=== PATIENT | male | born 1945 | race Caucasian/White ===

== ENCOUNTER 2018-01-21 11:50 | Inpatient (IN) ==
[2018-01-21] MEDS ORDERED: 0.9 % Sodium Chloride 1,000 ML ONE (13:58)
[2018-01-21] MEDS ORDERED: Naloxone 0.4 MG/ML INJ IVP PRN (14:55)
[2018-01-21 14:56] LABS: Basophils % 0.4 %; Eosinophils # 0.1 K/mcL (0.0-0.6); Eosinophils % 1.3 %; Hematocrit 26.7 % (37.5-50.1); Hemoglobin 8.6 g/dL (12.9-16.9); Immature Granulocytes % 0.7 % (0-4); Lymphocytes # 1.6 K/mcL (0.6-4.6); Lymphocytes % 29.9 %; Mean Corpuscular HGB Conc 32.2 g/dL (31.6-35.5); Mean Corpuscular Hemoglobin 32.3 pg (28.0-33.3); Mean Corpuscular Volume 100.4 fL (83.0-100.0); Monocytes # 0.3 K/mcL (0.0-1.3); Monocytes % 4.7 %; Neutrophils # 3.4 K/mcL (1.6-8.9); Platelet Count 147 K/mcL (140-400); Red Blood Count 2.66 M/mcL (4.19-5.50)
[2018-01-21] MEDS ORDERED: Ipratropium/Albuterol Neb 3 ML IH PRN (15:06)
[2018-01-21 15:21] LABS: Alanine Aminotransferase 6 Units/L (7-52); Albumin 3.4 g/dL (3.5-5.7); Albumin/Globulin Ratio 1.5 (1.1-2.2); Alkaline Phosphatase 129 Units/L (34-104); Aspartate Amino Transferase 10 Units/L (13-39); BUN/Creatinine Ratio 18 (6-26); Bilirubin,Total 0.6 mg/dL (0.3-1.0); Blood Urea Nitrogen 13 mg/dL (8-23); Carbon Dioxide 26 mEq/L (23-29); Chloride 107 mEq/L (98-107); Globulin 2.2 g/dL (2.4-3.5); Glucose 94 mg/dL (70-105); Osmolality,Calculated 290 (280-300); Sodium 140 mEq/L (136-145); Total Protein 5.6 g/dL (6.4-8.9); eGFR For African Americans > 60 (> 60); eGFR For Non-African Americans > 60 (> 60)
[2018-01-21] MEDS ORDERED: 0.9 % Sodium Chloride 500 ML IVC ONE (16:40)
--- NOTE | 2018-01-21 17:31 | Internal Med History&Physical ---
<MattPatrick Nicole - Last Filed: 01/21/18 18:22> Date of Encounter: 01/21/18 Time of Encounter: 14:30 Internal Medicine - H&P: HPI Chief complaint: Blood in urine Admitted From: Hospital to Hospital Transfer Plans for Post Hospital Care: Home History of present illness: Mr. Gardner is a 72 year old male w/PMH of HTN, atrial flutter on Xarelto, torticollis, peripheral vascular disease status postgraft, and bladder cancer presents from [facility] ED w/CC of blood in urine for the past month that has become progressively worse over the past week. Pt. reports weakness and SOB over the past week and constipation over the past two days. No alleviating or aggravating factors. Pt. denies recent illness, fever, chills, nausea, vomiting , headache, changes in vision, abdominal pain, diarrhea, dizziness, lightheadedness, pre-syncope, or syncope. Past Med Surg Social Fam HX - Past Medical History Source: patient, old records reviewed Medical history: atrial fibrillation, COPD, GERD, hyperlipidemia, hypertension Additional medical history: torticollis, anxiety, muscle spasm Psychiatric history: anxiety - Past Surgical History Additional surgical history: vascular surgery times two. hernia repair. stents in bladder. torticollis surgery, brain surgery, stent placement and replacement, bladder surgery, sprunt off left heel, eyelid surgery - Social History Smoking Status: Light tobacco smoker Smokeless Tobacco Status: No Alcohol use: none Drug use: none Current living situation: Home Activity Level: Independent ambulation Recent Out of Country Travel Within the Last 8 Weeks: No Exposure or Possible Exposure to Illness During Travel: No - Family History Father Adopted: [place]: Josue Gardner Race: Family Member Ethnicity: Non- Living Status: Age at : 79 Cause of : Alzheimer's disease Hx Family Cancer: Yes (Lip) Hx Family Neuromuscular Disorders: Yes (Alzheimer's disease) Mother Race: Family Member Ethnicity: Non- Living Status: Age at : 75 Cause of : Stroke Hx Family Cardiac Disorders: Yes (Stroke, HTN) Brother Race: Family Member Ethnicity: Non- Living Status: Still Living Hx Family Neurologic Disorders: Yes (Alzheimer's disease) Sister History Unknown: Yes Race: Family Member Ethnicity: Non- Living Status: Age at : 64 Cause of : Unknown Daughter Race: Family Member Ethnicity: Non- Living Status: Still Living Hx Family GI Disorders: Yes (GERD) Internal Medicine - H&P: Meds Atenolol [Tenormin] 50 mg PO DAILY 09/30/16 [History] Baclofen [Lioresal] 10 mg PO TID 09/30/16 [History] Dantrolene Sodium 50 mg PO TID 09/30/16 [History] Esomeprazole Magnesium [Nexium] 40 mg PO DAILY PRN 09/30/16 [History] Sennosides [Senokot] 8.6 mg PO DAILY PRN 09/30/16 [History] Tizanidine HCl 8 mg PO Q8H 09/30/16 [History] Tramadol HCl [Ultram] 100 mg PO Q8H PRN 09/30/16 [History] diazePAM [Valium] 10 mg PO TID PRN 09/30/16 [History] Atorvastatin Calcium [Lipitor] 20 mg PO HS 09/15/17 [History] Gabapentin [Neurontin] 400 mg PO TID 09/15/17 [History] Terazosin HCl 10 mg PO BID 09/15/17 [History] Albuterol Sulfate [Ventolin Hfa] 2 puff IH Q6H PRN 01/21/18 [History] Budesonide/Formoterol 160/4.5 [Symbicort 160/4.5] 2 puff IH BID 01/21/18 [ History] 3 Allergy/AdvReac Type Severity Reaction Status Date / Time morphine AdvReac See Verified 01/21/18 19:50 Comments Oxycodone AdvReac See Verified 01/21/18 19:50 Comments All Systems PM: A 10-system review of systems was performed and is negative for pertinent findings except as documented above in the HPI. - Constitutional Constitutional: as per HPI, fatigue, weakness, no chills, no fever(s), no night sweats - EENT Eyes: no change in vision, no discharge, no pain, no photophobia Ears: no ear discharge, no ear pain, no tinnitus Nose, mouth and throat: no dysphagia, no nasal discharge, no neck pain, no sore throat - Breasts Breasts: as per HPI - Cardiovascular Cardiovascular ROS IM: as per HPI, dyspnea, dyspnea on exertion, irregular heart rhythm, no chest pain, no diaphoresis, no lightheadedness, no palpitations , no syncope - Respiratory Respiratory: as per HPI, dyspnea, dyspnea on exertion, no cough, no wheezing, no excessive phlegm production - Gastrointestinal Gastrointestinal: as per HPI, constipation, no abdominal pain, no diarrhea, no hematemesis, no hematochezia, no melena, no nausea, no vomiting - Genitourinary Genitourinary ROS male: as per HPI - Musculoskeletal Musculoskeletal ROS IM: no numbness, no tingling - Integumentary Integumentary IM: no rash, no unusual bruising - Neurological Neurological ROS: as per HPI, weakness, no confusion, no convulsions, no focal weakness, no numbness, no tingling, no tremor(s) - Psychiatric Psychiatric: as per HPI - Endocrine Endocrine IM: as per HPI - Hematologic/Lymphatic Hematologic/Lymphatic: no easy bruising - Allergic/Immunologic Allergic/Immunologic: as per HPI - Constitutional Vitals: Temp Pulse Resp BP Pulse Ox 97.9 F 70 15 98/66 92 01/21/18 16:02 01/21/18 16:02 01/21/18 16:02 01/21/18 14:49 01/21/18 16:02 General appearance: Present: cooperative, A&O X 3, pleasant, no acute distress, underweight, answers questions appropriately - Head Head exam: Present: atraumatic, normocephalic - Eye Eye exam: Present: PERRL, conjuntiva pink, sclera anicteric Pupils: Present: PERRL - ENT ENT exam: Present: normal exam - Neck Neck exam general surgery: Present: supple, trachea midline. Absent: lymphadenopathy - Respiratory Respiratory exam: Present: CTAB. Absent: accessory muscle use, rales, rhonchi, wheezes - Cardiovascular Cardiovascular exam: Present: irregular rhythm - GI/Abdominal GI/Abdominal exam: Present: normal bowel sounds, soft, no peritoneal signs. Absent: distended, tenderness - Rectal Rectal exam: Present: deferred - Additional comments: exam deferred. - Extremities Exam Extremities exam: Present: warm, radial pulses palpable and symmetrical. Absent : calf tenderness, cyanotic, pedal edema - Back Exam Back exam: Present: normal inspection - Neurological Exam Neurological exam: Present: CN II-XII intact, oriented X3, no focal deficits. Absent: pronater drift, facial droop, speech deficit - Psychiatric Psychiatric exam: Present: normal affect, normal mood - Skin Skin exam: Present: dry, intact Internal Med - H&P Results - Labs CBC & Chem 7: 01/21/18 14:35 01/21/18 14:35 Labs: Short CBC 01/21/18 Range/Units 14:35 WBC 5.4 (4.3-11.1) K/mcL Hgb 8.6 L (12.9-16.9) g/dL Hct 26.7 L (37.5-50.1) % Plt Count 147 (140-400) K/mcL Neutrophils # 3.4 (1.6-8.9) K/mcL BMP 01/21/18 14:35 Sodium 140 Potassium 4.0 Chloride 107 Carbon Dioxide 26 BUN 13 Creatinine 0.72 Glucose 94 Calcium 8.0 L Liver Function 01/21/18 Range/Units 14:35 Total Bilirubin 0.6 (0.3-1.0) mg/dL AST 10 L (13-39) Units/L ALT 6 L (7-52) Units/L Alkaline Phosphatase 129 H (34-104) Units/L Albumin 3.4 L (3.5-5.7) g/dL - EKG Data Prior EKG available for review: yes EKG comments: 01/21/18 17:40 EKG dated 01/21/18 at [place] shows atrial flutter with predominant 4:1 AV block , nonspecific intraventricular conduction delay, nonspecific T abnormalities in inferior leads, and ST elevation. Consider inferior injury. EKG dated 01/21/18 at [place] shows atrial flutter/tachycardia with slow ventricular response, borderline left axis deviation, and moderate intraventricular conduction delay. - Assessment and plan (1) Gross hematuria Current Visit: Yes Status: Acute Assessment and plan: Acute on chronic hematuria. Pt. reports hematuria for past month which has worsened over past few days. Gross shira blood present in urinary catheter. Hx of urothelial carcinoma. Urology consult during transfer discussion w/Chaitanya and Dr. Mcwilliams. Hgb low at [facility] so pt. transfused w/2 units PRBCs. Hgb now 8.6 post-transfusion. Pt. also hypotensive at [facility] w/SBP in 50s. BP improved to 70s post-transfusion. Timed H/H Q6HR. Communication order w/timed BPs and notification to admitter/provider of results to assess need for IV fluids. Manual BPs to be done until pts. SBP >120 for four hours or more. 500 mL 0.9 NS bolus ordered to be followed by 100 mL/HR. Pts. nurse on 3A notified Dr. Mcwilliams of gross shira blood in urinary catheter whose recommendation was to keep pt. hemodynamically stable, do not replace current Kohli w/3-way Kohli, and no CBI. Dr. Mcwilliams to see pt. this afternoon. NPO status w/mouth swabs. Continuous cardiac telemetry. Supplemental O2 w/titration and SpO2 monitoring. Falls/safety precautions, up with assist, bed rest w/bedside commode w/assist only d/t weakness. Measure I&O. APTT and PT/INR in f/u labs. Pt. is DNRCCA DNI. PT. to be monitored closely for continued hypotension and need for PRBC tranfusions. Pt. discussed w/ Dr. Arellano who agrees w/plan of care. Pt. is high risk for further mobidity d/t current gross hematuria, current atrial flutter on Xarelto, hx of urothelial carcinoma, and risk factors. Inpatient. (2) Weakness Current Visit: Yes Status: Acute Assessment and plan: Acute weakness r/t gross shira blood loss from hematuria. Falls/safety precautions, up with assist, bed rest w/bedside commode w/assist only. (3) HTN (hypertension) Current Visit: Yes Status: Chronic Assessment and plan: Hx of chronic HTN. Monitor pt. and VS. Will continue pts. BP meds once appropriate d/t current severe hypotension. Qualifiers: Hypertension type: essential hypertension Qualified Code(s): I10 - Essential (primary) hypertension (4) Atrial flutter Current Visit: Yes Status: Chronic Assessment and plan: Hx of atrial flutter. Pt. on Xarelto. Monitor hematuria. NPO status for now so PO meds held. Continuous cardiac telemetry. Qualifiers: Atrial flutter type: unspecified Qualified Code(s): I48.92 - Unspecified atrial flutter (5) Torticollis Current Visit: Yes Status: Chronic Assessment and plan: Hx of chronic torticollis. Pt. states numbness extends from right side of head around front to left chest/shoulder. (6) Urothelial cancer Current Visit: Yes Status: Chronic Assessment and plan: Hx of urothelial carcinoma. Hx of cystoscopy by Dr. Mcwilliams and transurethral resection of bladder tumor in past. Urology consult ordered and discussed w/Dr. Mcwilliams during transfer from [facility]. (7) DVT prophylaxis Current Visit: Yes Status: Acute Assessment and plan: Pt. takes Xarelto for current atrial flutter. Monitor pt. for worsening hematuria/bleeding. (8) Severe hypotension Current Visit: Yes Status: Acute Assessment and plan: Acute severe hypotension r/t current blood loss from gross hematuria. Monitor pt. and VS. Pts. SBP was in 50s at [facility]. Received 2 units PRBCs. BP Q15MIN ordered w/communication order for manual BPs until pts. SBP >120 for four hours. 500 mL 0.9 NS bolus ordered. last BP 102/70. Continue to monitor. - Time Spent With Patient Total time spent is greater than 50% in coordination of care (as documented) at patient's floor/unit and/or counseling patient: Greater than 35 minutes <Adrian Arellano - Last Filed: 01/22/18 07:42> Date of Encounter: 01/22/18 Internal Medicine - H&P: HPI History of present illness: Mr. Gardner is a 72 year old male All Systems PM: A 10-system review of systems was performed and is negative for pertinent findings except as documented above in the HPI. - Constitutional Vitals: Temp Pulse Resp BP Pulse Ox 97.8 F 61 18 112/68 94 01/22/18 07:20 01/22/18 07:20 01/22/18 07:20 01/22/18 07:20 01/22/18 07:20 Internal Med - H&P Results - Labs CBC & Chem 7: 01/22/18 03:15 01/22/18 03:15 Labs: Short CBC 01/21/18 01/21/18 01/22/18 Range/Units 14:35 21:00 03:15 WBC 5.4 4.5 (4.3-11.1) K/mcL Hgb 8.6 L 8.2 L 7.9 L (12.9-16.9) g/dL Hct 26.7 L 25.2 L 24.8 L (37.5-50.1) % Plt Count 147 155 (140-400) K/mcL Neutrophils # 3.4 2.6 (1.6-8.9) K/mcL BMP 01/21/18 01/22/18 14:35 03:15 Sodium 140 141 Potassium 4.0 3.9 Chloride 107 109 H Carbon Dioxide 26 27 BUN 13 17 Creatinine 0.72 0.88 Glucose 94 103 Calcium 8.0 L 8.1 L Liver Function 01/21/18 01/22/18 Range/Units 14:35 03:15 Total Bilirubin 0.6 0.3 (0.3-1.0) mg/dL AST 10 L 11 L (13-39) Units/L ALT 6 L 5 L (7-52) Units/L Alkaline Phosphatase 129 H 123 H (34-104) Units/L Albumin 3.4 L 3.3 L (3.5-5.7) g/dL - Attending Attestation Discussed with SISI and agree with assessment as above. Patient is a 72-year-old male with past medical history significant for bladder cancer who presents with gross hematuria and hypotension from [facility]. On exam patient is a healthy-appearing and hypotensive. Patient has received 2 units of packed red blood cells and hemoglobin has improved. Continue IV fluid resuscitation Urology has been consulted and will see patient this evening. - Assessment and plan (1) Urothelial cancer Current Visit: Yes Status: Chronic (2) Gross hematuria Current Visit: Yes Status: Acute (3) HTN (hypertension) Current Visit: Yes Status: Chronic Qualifiers: Hypertension type: essential hypertension Qualified Code(s): I10 - Essential (primary) hypertension (4) Atrial flutter Current Visit: Yes Status: Chronic Qualifiers: Atrial flutter type: unspecified Qualified Code(s): I48.92 - Unspecified atrial flutter (5) Torticollis Current Visit: Yes Status: Chronic (6) DVT prophylaxis Current Visit: Yes Status: Acute (7) Weakness Current Visit: Yes Status: Acute (8) Severe hypotension Current Visit: Yes Status: Acute - Time Spent With Patient Total time spent is greater than 50% in coordination of care (as documented) at patient's floor/unit and/or counseling patient:
[2018-01-21] MEDS ORDERED: Ketorolac 30 MG/ML VIAL IVP ONE (17:48)
--- NOTE | 2018-01-21 19:16 | Urology - Consult Note ---
Date of Encounter: 01/21/18 Time of Encounter: 19:14 - Assessment and Plan (1) Gross hematuria Current Visit: Yes Status: Acute Assessment and plan: Gross hematuria is likely secondary to bladder cancer combined with anticoagulation. I placed a 3-way hematuria catheter was able to irrigate clot and started CBI. Hopefully the urine will clear with CBI. Hold all anticoagulation if possible. If urine does not clear we will perform CT pelvis to rule out clot in the bladder. Urology CN:ABRRERA Consult date: 01/21/18 Reason for consult Urology: Gross Hematuria History of present illness: Patient known to the urology service. TURBT in the last few months revealed muscle invasive bladder cancer. Currently under the care at the [facility] with adjuvant chemotherapy planned followed by radical cystectomy. He reports he has had dark gross hematuria with some clots for at least 2 weeks. He is on Xarelto which was held a few days ago. He did not undergo a repeat TURBT at [facility]. Significant symptomatic anemia at admission Past Med Surg Social Fam HX - Past Medical History Medical history: atrial fibrillation, COPD, GERD, hyperlipidemia, hypertension Additional medical history: torticollis, anxiety, muscle spasm Psychiatric history: anxiety - Past Surgical History Additional surgical history: vascular surgery times two. hernia repair. stents in bladder. torticollis surgery, brain surgery, stent placement and replacement, bladder surgery, sprunt off left heel, eyelid surgery - Social History Smoking Status: Light tobacco smoker Smokeless Tobacco Status: No Alcohol use: none Drug use: none - Family History Father Adopted: [place]: Josue Gardner Race: Family Member Ethnicity: Non- Living Status: Age at : 79 Cause of : Alzheimer's disease Hx Family Cardiac Disorders: No Hx Family Respiratory Disorders: No Hx Family Cancer: Yes (Lip) Hx Family GI Disorders: No Hx Family Genitourinary Disorders: No Hx Family Endocrine Disorder: No Hx Family Musculoskeletal Disorders: No Hx Family Neuromuscular Disorders: Yes (Alzheimer's disease) Hx Family Neurologic Disorders: No Hx Family HEENT Disorders: No Hx Family Autoimmune Disorders: No Hx Family Reproductive Disorders: No Hx Family Psychosocial Disorders: No Hx Family Medical Disorders: No Mother Race: Family Member Ethnicity: Non- Living Status: Age at : 75 Cause of : Stroke Hx Family Cardiac Disorders: Yes (Stroke, HTN) Brother Race: Family Member Ethnicity: Non- Living Status: Still Living Hx Family Neurologic Disorders: Yes (Alzheimer's disease) Sister History Unknown: Yes Race: Family Member Ethnicity: Non- Living Status: Age at : 64 Cause of : Unknown Daughter Race: Family Member Ethnicity: Non- Living Status: Still Living Hx Family GI Disorders: Yes (GERD) Medications and Allergies Atenolol [Tenormin] 50 mg PO DAILY 09/30/16 [History] Baclofen [Lioresal] 10 mg PO TID 09/30/16 [History] Dantrolene Sodium 50 mg PO QID 09/30/16 [History] Esomeprazole Magnesium [Nexium] 40 mg PO DAILY 09/30/16 [History] Sennosides [Senokot] 8.6 mg PO DAILY PRN 09/30/16 [History] Tizanidine HCl 4 - 8 mg PO Q8H 09/30/16 [History] Tramadol HCl [Ultram] 50 - 100 mg PO Q8H PRN 09/30/16 [History] diazePAM [Valium] 10 mg PO TID 09/30/16 [History] Atorvastatin Calcium [Lipitor] 20 mg PO HS 09/15/17 [History] Gabapentin [Neurontin] 400 mg PO QID 09/15/17 [History] Hydrocodone/Acetaminophen [Hydrocodon-Acetaminophen 5-325] 1 each PO Q4H PRN 5 Days #15 tablet 09/15/17 [Rx] Terazosin HCl 10 mg PO BID 09/15/17 [History] 3 Allergy/AdvReac Type Severity Reaction Status Date / Time morphine AdvReac See Verified 09/15/17 07:18 Comments Oxycodone AdvReac See Verified 09/15/17 07:18 Comments Review of Systems - Constitutional fatigue, no fever(s) - EENT Nose, mouth and throat: dizziness, headache(s) - Cardiovascular no chest pain - Respiratory no cough - Gastrointestinal abdominal pain, no nausea - Genitourinary hematuria - Musculoskeletal back pain - Integumentary no lesions - Neurological no confusion - Psychiatric no anxiety - Hematologic/Lymphatic as per HPI, easy bleeding - Allergic/Immunologic no throat swelling Exam Initial Vital Signs Temp Pulse Resp BP Pulse Ox 97.7 F 80 16 97/63 97 01/21/18 14:16 01/21/18 14:16 01/21/18 14:16 01/21/18 14:16 01/21/18 14:16 - General physical appearance Present: no distress, chronically ill - Eyes Present: PERRL, normal ocular movement - ENT Present: normal nares. Absent: decreased hearing - Neck Present: other - Respiratory Present: normal respiratory effort - Cardiovascular Cardiovascular exam IM: RRR - Abdomen Abdomen: Present: soft, suprapubic tenderness - Genitourinary normal penis with no external lesions - Integumentary Present: no rash - Neurologic Present: normal coordination. Absent: disoriented, confused - Musculoskeletal Present: normal gait - Additional Findings Kohli catheter in place draining opaque red urine Urology Results - Labs 01/21/18 14:35 01/21/18 14:35 Abnormal lab results RBC 2.66 M/mcL (4.19-5.50) L 01/21/18 14:35 Hgb 8.6 g/dL (12.9-16.9) L 01/21/18 14:35 Hct 26.7 % (37.5-50.1) L 01/21/18 14:35 MCV 100.4 fL (83.0-100.0) H 01/21/18 14:35 RDW 15.0 % (11.5-14.5) H 01/21/18 14:35 Calcium 8.0 mg/dL (8.6-10.3) L 01/21/18 14:35 AST 10 Units/L (13-39) L 01/21/18 14:35 ALT 6 Units/L (7-52) L 01/21/18 14:35 Alkaline Phosphatase 129 Units/L (34-104) H 01/21/18 14:35 Serum Total Protein 5.6 g/dL (6.4-8.9) L 01/21/18 14:35 Albumin 3.4 g/dL (3.5-5.7) L 01/21/18 14:35 Globulin 2.2 g/dL (2.4-3.5) L 01/21/18 14:35 Diabetes panel 01/21/18 Range/Units 14:35 Sodium 140 (136-145) mEq/L Potassium 4.0 (3.5-5.1) mEq/L Chloride 107 (98-107) mEq/L Carbon Dioxide 26 (23-29) mEq/L BUN 13 (8-23) mg/dL Creatinine 0.72 (0.70-1.30) mg/dL Glucose 94 (70-105) mg/dL Calcium 8.0 L (8.6-10.3) mg/dL AST 10 L (13-39) Units/L ALT 6 L (7-52) Units/L Alkaline Phosphatase 129 H (34-104) Units/L Albumin 3.4 L (3.5-5.7) g/dL Calcium panel 01/21/18 Range/Units 14:35 Calcium 8.0 L (8.6-10.3) mg/dL Albumin 3.4 L (3.5-5.7) g/dL Pituitary panel 01/21/18 Range/Units 14:35 Sodium 140 (136-145) mEq/L Potassium 4.0 (3.5-5.1) mEq/L Chloride 107 (98-107) mEq/L Carbon Dioxide 26 (23-29) mEq/L BUN 13 (8-23) mg/dL Creatinine 0.72 (0.70-1.30) mg/dL Glucose 94 (70-105) mg/dL Calcium 8.0 L (8.6-10.3) mg/dL Adrenal panel 01/21/18 Range/Units 14:35 Sodium 140 (136-145) mEq/L Potassium 4.0 (3.5-5.1) mEq/L Chloride 107 (98-107) mEq/L Carbon Dioxide 26 (23-29) mEq/L BUN 13 (8-23) mg/dL Creatinine 0.72 (0.70-1.30) mg/dL Glucose 94 (70-105) mg/dL Calcium 8.0 L (8.6-10.3) mg/dL Total Bilirubin 0.6 (0.3-1.0) mg/dL AST 10 L (13-39) Units/L ALT 6 L (7-52) Units/L Alkaline Phosphatase 129 H (34-104) Units/L Albumin 3.4 L (3.5-5.7) g/dL All other labs normal. Procedures:Urology - Catheter Insertion (Urinary) Bladder Scan/Ultrasound used before catheterization: No Estimated amount of urin (mLs): 100 Preparation: Povidone-Iodine Type of catheter inserted: 3 way, silastic Catheter Angolan Size: 22 Topical anesthesia used: Yes (Urojet) Urine Appearance: Large Blood Clots Patient tolerated procedure: well Additional comments: 22-Angolan simplastic catheter placed. Able to irrigate small to moderate amount of clot. Started CBI with fast drip resulting in transparent pinkish red urine. Consult Discharge Plan - Plan Referrals: Estrellita Velez CNP [Primary Care Provider] - 01/28/18 9:30 am
[2018-01-21] MEDS ORDERED: Sennosides 8.6 MG TABLET PO PRN (20:18)
[2018-01-21] MEDS: Nicotine 21 MG PATCH.TD24 TD SCH (20:47)
[2018-01-21] MEDS: tiZANidine 4 MG TABLET PO SCH (21:24)
[2018-01-21] MEDS: traMADol 50 MG TABLET PO PRN (21:24)
[2018-01-21] MEDS: Gabapentin 400 MG CAPSULE PO SCH (21:25)
[2018-01-21] MEDS: Baclofen 10 MG TABLET PO SCH (21:25)
[2018-01-21 21:49] LABS: Hematocrit 25.2 % (37.5-50.1); Hemoglobin 8.2 g/dL (12.9-16.9)
[2018-01-21] MEDS: Budesonide/Formoterol 160/4.5 MDI IH SCH (22:54)
[2018-01-21] MEDS: 0.9 % Sodium Chloride 1,000 ML IVC SCH (23:27)
[2018-01-22 03:43] LABS: Basophils % 0.2 %; Eosinophils # 0.1 K/mcL (0.0-0.6); Eosinophils % 2.2 %; Hematocrit 24.8 % (37.5-50.1); Hemoglobin 7.9 g/dL (12.9-16.9); Immature Granulocytes % 0.7 % (0-4); Lymphocytes # 1.5 K/mcL (0.6-4.6); Mean Corpuscular HGB Conc 31.9 g/dL (31.6-35.5); Mean Corpuscular Hemoglobin 31.9 pg (28.0-33.3); Mean Platelet Volume 10.2 fL (9.4-12.4); Monocytes # 0.3 K/mcL (0.0-1.3); Monocytes % 6.3 %; Neutrophils # 2.6 K/mcL (1.6-8.9); Platelet Count 155 K/mcL (140-400); Red Blood Count 2.48 M/mcL (4.19-5.50); Red Cell Distribution Width 15.5 % (11.5-14.5); Segmented Neutrophils % 57.6 %
[2018-01-22 03:54] LABS: Prothrombin Time 11.2 Seconds (9.4-12.1)
[2018-01-22 03:55] LABS: Alanine Aminotransferase 5 Units/L (7-52); Albumin 3.3 g/dL (3.5-5.7); Albumin/Globulin Ratio 1.7 (1.1-2.2); Alkaline Phosphatase 123 Units/L (34-104); Aspartate Amino Transferase 11 Units/L (13-39); BUN/Creatinine Ratio 19 (6-26); Bilirubin,Total 0.3 mg/dL (0.3-1.0); Blood Urea Nitrogen 17 mg/dL (8-23); Calcium 8.1 mg/dL (8.6-10.3); Carbon Dioxide 27 mEq/L (23-29); Chloride 109 mEq/L (98-107); Chol/HDL Ratio 3.2 (0-4.9); Cholesterol 84 mg/dL (< 200); Glucose 103 mg/dL (70-105); HDL Cholesterol 26 mg/dL (40-59); LDL Cholesterol,Calculated 29 mg/dL (0-99); Magnesium 2.2 mg/dL (1.6-2.6); Osmolality,Calculated 294 (280-300); Phosphorous 4.2 mg/dL (2.7-4.5); Potassium 3.9 mEq/L (3.5-5.1); Sodium 141 mEq/L (136-145); Total Protein 5.3 g/dL (6.4-8.9); Triglycerides 144 mg/dL (< 150); eGFR For African Americans > 60 (> 60); eGFR For Non-African Americans > 60 (> 60)
[2018-01-22 03:56] LABS: Activated Partial Thrombo Time 21.8 Seconds (26.0-36.0)
--- NOTE | 2018-01-22 07:14 | Urology Progress Note ---
Date of Encounter: 01/22/18 Time of Encounter: 07:12 - Assessment and Plan (1) Gross hematuria Current Visit: Yes Status: Acute Assessment and plan: resolving with cath drainage and CBI. continue CBI today. again HOLD all anticoagulation. will reassess this afternoon. will not likely need surgical intervention Progress Note Narrative: no clot retention overnight. Objective Initial Vital Signs Temp Pulse Resp BP Pulse Ox 97.7 F 80 16 97/63 97 01/21/18 14:16 01/21/18 14:16 01/21/18 14:16 01/21/18 14:16 01/21/18 14:16 - General physical appearance Present: no distress - Additional Exam moderate drip with transparent pinkish urine. - Labs 01/22/18 03:15 01/22/18 03:15 Diabetes panel 01/21/18 01/22/18 Range/Units 14:35 03:15 Sodium 140 141 (136-145) mEq/L Potassium 4.0 3.9 (3.5-5.1) mEq/L Chloride 107 109 H (98-107) mEq/L Carbon Dioxide 26 27 (23-29) mEq/L BUN 13 17 (8-23) mg/dL Creatinine 0.72 0.88 (0.70-1.30) mg/dL Glucose 94 103 (70-105) mg/dL Calcium 8.0 L 8.1 L (8.6-10.3) mg/dL AST 10 L 11 L (13-39) Units/L ALT 6 L 5 L (7-52) Units/L Alkaline Phosphatase 129 H 123 H (34-104) Units/L Albumin 3.4 L 3.3 L (3.5-5.7) g/dL Triglycerides 144 (< 150) mg/dL HDL Cholesterol 26 L (40-59) mg/dL Calcium panel 01/21/18 01/22/18 Range/Units 14:35 03:15 Calcium 8.0 L 8.1 L (8.6-10.3) mg/dL Phosphorus 4.2 (2.7-4.5) mg/dL Albumin 3.4 L 3.3 L (3.5-5.7) g/dL Pituitary panel 01/21/18 01/22/18 Range/Units 14:35 03:15 Sodium 140 141 (136-145) mEq/L Potassium 4.0 3.9 (3.5-5.1) mEq/L Chloride 107 109 H (98-107) mEq/L Carbon Dioxide 26 27 (23-29) mEq/L BUN 13 17 (8-23) mg/dL Creatinine 0.72 0.88 (0.70-1.30) mg/dL Glucose 94 103 (70-105) mg/dL Calcium 8.0 L 8.1 L (8.6-10.3) mg/dL Adrenal panel 01/21/18 01/22/18 Range/Units 14:35 03:15 Sodium 140 141 (136-145) mEq/L Potassium 4.0 3.9 (3.5-5.1) mEq/L Chloride 107 109 H (98-107) mEq/L Carbon Dioxide 26 27 (23-29) mEq/L BUN 13 17 (8-23) mg/dL Creatinine 0.72 0.88 (0.70-1.30) mg/dL Glucose 94 103 (70-105) mg/dL Calcium 8.0 L 8.1 L (8.6-10.3) mg/dL Total Bilirubin 0.6 0.3 (0.3-1.0) mg/dL AST 10 L 11 L (13-39) Units/L ALT 6 L 5 L (7-52) Units/L Alkaline Phosphatase 129 H 123 H (34-104) Units/L Albumin 3.4 L 3.3 L (3.5-5.7) g/dL Consult Discharge Plan - Plan Referrals: Estrellita Velez CNP [Primary Care Provider] - 01/28/18 9:30 am
--- NOTE | 2018-01-22 07:20 | Electrocardiograph Report ---
[address] [address] Test Date: 2018-01-21 Pat Name: Franco Gardner Department: 115 Room: 2N12 Gender: M Wire Drawer: PETRA : 1945 Requested By: [id number] Order Number: [id number] Reading MD: Jame Sewell Measurements Intervals [place] Rate: 54 P: [place]: 0 QRS: -29 QRSD: 121 T: 63 QT: 415 QTc: 400 Interpretive Statements ATRIAL FLUTTER WITH SLOW VENTRICULAR RESPONSE BORDERLINE LEFT AXIS DEVIATION Electronically Signed On 01-22-2018 7:19:35 EDT by Jame Sewell
[2018-01-22] MEDS: Budesonide/Formoterol 160/4.5 MDI IH SCH ×2 (08:00→19:59)
[2018-01-22] MEDS: tiZANidine 4 MG TABLET PO SCH ×3 (08:52→17:21)
[2018-01-22] MEDS: Baclofen 10 MG TABLET PO SCH ×3 (08:57→20:52)
[2018-01-22] MEDS: Gabapentin 400 MG CAPSULE PO SCH ×3 (08:57→20:52)
[2018-01-22] MEDS: Nicotine 21 MG PATCH.TD24 TD SCH (08:57)
[2018-01-22] MEDS: traMADol 50 MG TABLET PO PRN ×2 (09:03→17:22)
[2018-01-22] MEDS: diazePAM 10 MG TABLET PO PRN (09:04)
[2018-01-22 09:34] LABS: Hematocrit 27.1 % (37.5-50.1); Hemoglobin 8.5 g/dL (12.9-16.9)
--- NOTE | 2018-01-22 12:16 | Internal Med Progress Note ---
Date of Encounter: 01/22/18 Time of Encounter: 12:14 - Assessment and plan (1) Gross hematuria Current Visit: Yes Status: Acute Assessment and plan: Acute on chronic hematuria. Patient notice mild intermittent hematuria for last few weeks but noticed shira blood yesterday at oncologist's office. He supposed to his start chemotherapy yesterday. Patient was sent to [facility] where he got transfused w/2 units PRBCs due to significant low hemoglobin. Eventually patient got transferred to [facility] and Urologist was consulted who advised to stop anticoagulant therapy and is started on continuous bladder irrigation. Eventually patient is started to improve with stable hemoglobin still low. Will monitor hemoglobin if further decline then consider blood transfusion. Pt. is DNRCCA DNI. (2) Urothelial cancer Current Visit: Yes Status: Chronic Assessment and plan: Hx of urothelial carcinoma. Hx of cystoscopy by Dr. Mcwilliams and transurethral resection of bladder tumor in past. Patient already has plan for chemotherapy therapy at [facility] and plan for cystectomy at [facility] after getting discharged from the hospital. (3) HTN (hypertension) Current Visit: Yes Status: Chronic Assessment and plan: Hx of chronic HTN. Monitor pt. and VS. normal blood pressure at this time. Will hold antihypertensive medicine for now Qualifiers: Hypertension type: essential hypertension Qualified Code(s): I10 - Essential (primary) hypertension (4) Atrial flutter Current Visit: Yes Status: Chronic Assessment and plan: Hx of atrial flutter. Pt. on Xarelto for a few years. Anticoagulant on hold for now due to active hematuria. Continue rate control medicine atenolol. Continuous cardiac telemetry. Qualifiers: Atrial flutter type: unspecified Qualified Code(s): I48.92 - Unspecified atrial flutter (5) Weakness Current Visit: Yes Status: Acute Assessment and plan: Due to symptomatic anemia. Improving. Will consult PT if required (6) Severe hypotension Current Visit: Yes Status: Acute Assessment and plan: Due to blood loss most likely. Blood pressure is stable now. Continue to monitor blood pressure (7) Torticollis Current Visit: Yes Status: Chronic Assessment and plan: Chronic is stable. Has been evaluated by neurologist at [facility] (8) DVT prophylaxis Current Visit: Yes Status: Acute - Time Spent With Patient Total time spent is greater than 50% in coordination of care (as documented) at patient's floor/unit and/or counseling patient: - Subjective Interval history: Patient is lying in bed comfortably. Hematuria is lightening up. Bladder irrigation in the process. Patient denies fever chills nausea vomiting headache dizziness abdominal pain chest pain shortness of breath - Constitutional Vitals: Temp Pulse Resp BP Pulse Ox 97.8 F 66 18 118/65 94 01/22/18 11:15 01/22/18 11:15 01/22/18 11:15 01/22/18 11:47 01/22/18 11:15 General appearance: Present: cooperative, A&O X 3, pleasant, no acute distress, underweight, answers questions appropriately Exam: General appearance: No acute distress, A&O X 3. Torticollis Head exam: Atraumatic Eye exam: EOMI, PERRLA ENT exam: Moist oral mucosa Neck nontender, supple Respiratory exam: Clear to auscultation bilaterally Cardiovascular exam: Regular rate and rhythm, no systolic murmur Abdominal exam: Soft, nontender, nondistended, positive bowel sounds Extremities exam: No calf tenderness, no pedal edema Present: Skin-no rash, warm, dry, intact Neurological exam: Alert, awake, oriented 3, CN II-XII intact, no focal deficits. No facial droop. Normal speech. Internal Medicine: Result - Labs CBC & Chem 7: 01/22/18 09:07 01/22/18 03:15 Labs: Short CBC 01/21/18 01/21/18 01/22/18 Range/Units 14:35 21:00 03:15 WBC 5.4 4.5 (4.3-11.1) K/mcL Hgb 8.6 L 8.2 L 7.9 L (12.9-16.9) g/dL Hct 26.7 L 25.2 L 24.8 L (37.5-50.1) % Plt Count 147 155 (140-400) K/mcL Neutrophils # 3.4 2.6 (1.6-8.9) K/mcL 01/22/18 Range/Units 09:07 WBC (4.3-11.1) K/mcL Hgb 8.5 L (12.9-16.9) g/dL Hct 27.1 L (37.5-50.1) % Plt Count (140-400) K/mcL Neutrophils # (1.6-8.9) K/mcL BMP 01/21/18 01/22/18 14:35 03:15 Sodium 140 141 Potassium 4.0 3.9 Chloride 107 109 H Carbon Dioxide 26 27 BUN 13 17 Creatinine 0.72 0.88 Glucose 94 103 Calcium 8.0 L 8.1 L Liver Function 01/21/18 01/22/18 Range/Units 14:35 03:15 Total Bilirubin 0.6 0.3 (0.3-1.0) mg/dL AST 10 L 11 L (13-39) Units/L ALT 6 L 5 L (7-52) Units/L Alkaline Phosphatase 129 H 123 H (34-104) Units/L Albumin 3.4 L 3.3 L (3.5-5.7) g/dL - ABG Interpretation ABG results: PT/INR, D-dimer PT 11.2 Seconds (9.4-12.1) 01/22/18 03:15 - VTE Documentation of Mechanical Device: Intermittent pneumatic compression device Consult Discharge Plan - Plan Referrals: Estrellita Velez CNP [Primary Care Provider] - 01/28/18 9:30 am
[2018-01-22] MEDS ORDERED: *HR* Metoprolol 5 MG/5 ML VIAL IVP ONE (14:05)
[2018-01-22 15:15] LABS: Hematocrit 24.8 % (37.5-50.1); Hemoglobin 7.8 g/dL (12.9-16.9)
[2018-01-22] MEDS: 0.9 % Sodium Chloride 1,000 ML IVC SCH (17:31)
[2018-01-22 21:40] LABS: Hematocrit 23.5 % (37.5-50.1); Hemoglobin 7.4 g/dL (12.9-16.9)
[2018-01-23 01:44] LABS: Basophils % 0.4 %; Eosinophils # 0.1 K/mcL (0.0-0.6); Eosinophils % 1.7 %; Hematocrit 23.6 % (37.5-50.1); Hemoglobin 7.5 g/dL (12.9-16.9); Immature Granulocytes % 0.4 % (0-4); Lymphocytes # 1.3 K/mcL (0.6-4.6); Lymphocytes % 24.4 %; Mean Corpuscular HGB Conc 31.8 g/dL (31.6-35.5); Mean Corpuscular Hemoglobin 31.6 pg (28.0-33.3); Mean Corpuscular Volume 99.6 fL (83.0-100.0); Monocytes # 0.3 K/mcL (0.0-1.3); Monocytes % 5.4 %; Neutrophils # 3.5 K/mcL (1.6-8.9); Platelet Count 139 K/mcL (140-400); Red Blood Count 2.37 M/mcL (4.19-5.50); Red Cell Distribution Width 15.8 % (11.5-14.5); Segmented Neutrophils % 67.7 %
[2018-01-23 02:03] LABS: Alanine Aminotransferase 5 Units/L (7-52); Albumin 3.1 g/dL (3.5-5.7); Albumin/Globulin Ratio 1.6 (1.1-2.2); Alkaline Phosphatase 116 Units/L (34-104); Aspartate Amino Transferase 9 Units/L (13-39); BUN/Creatinine Ratio 15 (6-26); Bilirubin,Total 0.4 mg/dL (0.3-1.0); Blood Urea Nitrogen 10 mg/dL (8-23); Calcium 7.9 mg/dL (8.6-10.3); Carbon Dioxide 25 mEq/L (23-29); Chloride 113 mEq/L (98-107); Glucose 111 mg/dL (70-105); Osmolality,Calculated 296 (280-300); Potassium 4.1 mEq/L (3.5-5.1); Sodium 143 mEq/L (136-145); Total Protein 5.1 g/dL (6.4-8.9); eGFR For African Americans > 60 (> 60); eGFR For Non-African Americans > 60 (> 60)
[2018-01-23] MEDS: tiZANidine 4 MG TABLET PO SCH ×3 (05:17→22:59)
[2018-01-23] MEDS: Budesonide/Formoterol 160/4.5 MDI IH SCH ×2 (07:59→20:22)
[2018-01-23] MEDS: 0.9 % Sodium Chloride 1,000 ML IVC SCH ×3 (08:00→20:19)
--- NOTE | 2018-01-23 09:04 | Urology Progress Note ---
Date of Encounter: 01/23/18 Time of Encounter: 09:01 - Assessment and Plan (1) Gross hematuria Current Visit: Yes Status: Acute Assessment and plan: irrigated large volume of "old" clot from the bladder. this was undoubtedly contributing to continued hematuria. will obtain CT pelvis o better evaluate if more clot is present. if large volume of clot remains - may need OR tomorrow to evacuate. Progress Note Narrative: no acute events. hematuria continues/ Objective Initial Vital Signs Temp Pulse Resp BP Pulse Ox 97.7 F 80 16 97/63 97 01/21/18 14:16 01/21/18 14:16 01/21/18 14:16 01/21/18 14:16 01/21/18 14:16 - General physical appearance Present: no distress - Additional Exam turned CBI drip off and moderate hematuria returned. aggressive irrigation of bladder at bedside. returned at least 200 cc of black blood clot. unable to irrigate more clot after. - Labs 01/23/18 01:28 01/23/18 01:28 Diabetes panel 01/23/18 Range/Units 01:28 Sodium 143 (136-145) mEq/L Potassium 4.1 (3.5-5.1) mEq/L Chloride 113 H (98-107) mEq/L Carbon Dioxide 25 (23-29) mEq/L BUN 10 (8-23) mg/dL Creatinine 0.67 L (0.70-1.30) mg/dL Glucose 111 H (70-105) mg/dL Calcium 7.9 L (8.6-10.3) mg/dL AST 9 L (13-39) Units/L ALT 5 L (7-52) Units/L Alkaline Phosphatase 116 H (34-104) Units/L Albumin 3.1 L (3.5-5.7) g/dL Calcium panel 01/23/18 Range/Units 01:28 Calcium 7.9 L (8.6-10.3) mg/dL Albumin 3.1 L (3.5-5.7) g/dL Pituitary panel 01/23/18 Range/Units 01:28 Sodium 143 (136-145) mEq/L Potassium 4.1 (3.5-5.1) mEq/L Chloride 113 H (98-107) mEq/L Carbon Dioxide 25 (23-29) mEq/L BUN 10 (8-23) mg/dL Creatinine 0.67 L (0.70-1.30) mg/dL Glucose 111 H (70-105) mg/dL Calcium 7.9 L (8.6-10.3) mg/dL Adrenal panel 01/23/18 Range/Units 01:28 Sodium 143 (136-145) mEq/L Potassium 4.1 (3.5-5.1) mEq/L Chloride 113 H (98-107) mEq/L Carbon Dioxide 25 (23-29) mEq/L BUN 10 (8-23) mg/dL Creatinine 0.67 L (0.70-1.30) mg/dL Glucose 111 H (70-105) mg/dL Calcium 7.9 L (8.6-10.3) mg/dL Total Bilirubin 0.4 (0.3-1.0) mg/dL AST 9 L (13-39) Units/L ALT 5 L (7-52) Units/L Alkaline Phosphatase 116 H (34-104) Units/L Albumin 3.1 L (3.5-5.7) g/dL - VTE Documentation of Mechanical Device: Intermittent pneumatic compression device Consult Discharge Plan - Plan Referrals: Estrellita Velez, DION [Primary Care Provider] - 01/28/18 9:30 am
[2018-01-23] MEDS: Nicotine 21 MG PATCH.TD24 TD SCH (09:12)
[2018-01-23] MEDS: Gabapentin 400 MG CAPSULE PO SCH ×3 (09:14→22:59)
[2018-01-23] MEDS: Baclofen 10 MG TABLET PO SCH ×3 (09:14→22:59)
--- NOTE | 2018-01-23 14:11 | Internal Med Progress Note ---
Date of Encounter: 01/23/18 Time of Encounter: 14:08 - Assessment and plan (1) Gross hematuria Current Visit: Yes Status: Acute Assessment and plan: Still active hematuria but lightening up, trending down hemoglobin therefore 1 unit PRC transfusion ordered. CT pelvis ordered by urologist. Continue to follow his recommendation. Acute on chronic hematuria. Patient notice mild intermittent hematuria for last few weeks but noticed shira blood at oncologist's office. Patient was sent to [facility] where he got transfused w/2 units PRBCs due to significant low hemoglobin. Eventually patient got transferred to [facility] and Urologist was consulted who advised to stop anticoagulant therapy and is started on continuous bladder irrigation. Pt. is DNRCCA DNI. (2) Urothelial cancer Current Visit: Yes Status: Chronic Assessment and plan: Hx of urothelial carcinoma. Hx of cystoscopy by Dr. Mcwilliams and transurethral resection of bladder tumor in past. Patient already has plan for chemotherapy therapy at [facility] and plan for cystectomy at [facility] after getting discharged from the hospital. (3) HTN (hypertension) Current Visit: Yes Status: Chronic Assessment and plan: Low normal blood pressure with active hematuria even patient on normal saline. Monitor BP closely. Hx of chronic HTN. Will hold antihypertensive medicine for now Qualifiers: Hypertension type: essential hypertension Qualified Code(s): I10 - Essential (primary) hypertension (4) Atrial flutter Current Visit: Yes Status: Chronic Assessment and plan: Hx of atrial flutter. Pt. on Xarelto for a few years. Anticoagulant on hold for now due to active hematuria. Continue rate control medicine atenolol. Continuous cardiac telemetry. Qualifiers: Atrial flutter type: unspecified Qualified Code(s): I48.92 - Unspecified atrial flutter (5) Severe hypotension Current Visit: Yes Status: Acute Assessment and plan: Initial presentation at [facility] ER. Blood pressure started to improve after 2 unit blood transfusion. Today low normal blood pressure with active hematuria therefore decided one unit PRC transfusion today Continue to monitor blood pressure (6) Torticollis Current Visit: Yes Status: Chronic Assessment and plan: Chronic is stable. Has been evaluated by neurologist at [facility] (7) DVT prophylaxis Current Visit: Yes Status: Acute - Time Spent With Patient Total time spent is greater than 50% in coordination of care (as documented) at patient's floor/unit and/or counseling patient: 25 - 35 minutes - Subjective Interval history: Patient is lying in bed comfortably. still Hematuria but lightening up. Bladder irrigation in the process. Patient denies fever chills nausea vomiting headache dizziness abdominal pain chest pain shortness of breath. Review the lab trending down hemoglobin 7.5 - Constitutional Vitals: Temp Pulse Resp BP Pulse Ox 97.7 F 85 16 109/68 95 01/23/18 07:33 01/23/18 09:16 01/23/18 07:59 01/23/18 07:33 01/23/18 07:59 General appearance: Present: cooperative, A&O X 3, pleasant, no acute distress, underweight, answers questions appropriately Exam: General appearance: No acute distress, A&O X 3 Head exam: Atraumatic Eye exam: EOMI, PERRLA ENT exam: Moist oral mucosa. Chronic torticollis Neck nontender, supple Respiratory exam: Clear to auscultation bilaterally Cardiovascular exam: Regular rate and rhythm, no systolic murmur Abdominal exam: Soft, nontender, nondistended, positive bowel sounds Extremities exam: No calf tenderness, no pedal edema Present: Skin-, warm, dry, intact Neurological exam: Alert, awake, oriented 3, CN II-XII intact, no focal deficits. No facial droop. Normal speech. Internal Medicine: Result - Labs CBC & Chem 7: 01/23/18 01:28 01/23/18 01:28 Labs: Short CBC 01/22/18 01/22/18 01/23/18 Range/Units 15:00 21:28 01:28 WBC 5.2 (4.3-11.1) K/mcL Hgb 7.8 L 7.4 L 7.5 L (12.9-16.9) g/dL Hct 24.8 L 23.5 L 23.6 L (37.5-50.1) % Plt Count 139 L (140-400) K/mcL Neutrophils # 3.5 (1.6-8.9) K/mcL BMP 01/23/18 01:28 Sodium 143 Potassium 4.1 Chloride 113 H Carbon Dioxide 25 BUN 10 Creatinine 0.67 L Glucose 111 H Calcium 7.9 L Liver Function 01/23/18 Range/Units 01:28 Total Bilirubin 0.4 (0.3-1.0) mg/dL AST 9 L (13-39) Units/L ALT 5 L (7-52) Units/L Alkaline Phosphatase 116 H (34-104) Units/L Albumin 3.1 L (3.5-5.7) g/dL - ABG Interpretation ABG results: PT/INR, D-dimer PT 11.2 Seconds (9.4-12.1) 01/22/18 03:15 - VTE Documentation of Mechanical Device: Intermittent pneumatic compression device Consult Discharge Plan - Plan Referrals: Estrellita Velez CNP [Primary Care Provider] - 01/28/18 9:30 am
[2018-01-23] MEDS ORDERED: 0.9 % Sodium Chloride 250 ML ONE (14:52)
--- NOTE | 2018-01-23 18:19 | Event Note ---
Date of Encounter: 01/23/18 Time of Encounter: 18:[address] scan. there are still some residual clots in the bladder but < 20cc. will not require OR tomorrow. should be able to irrigate rest in AM. will be able to discharge when hgb stabilizes.
[2018-01-24 05:51] LABS: Basophils % 0.5 %; Eosinophils # 0.1 K/mcL (0.0-0.6); Eosinophils % 1.3 %; Hematocrit 27.5 % (37.5-50.1); Hemoglobin 8.8 g/dL (12.9-16.9); Immature Granulocytes % 0.7 % (0-4); Lymphocytes % 16.9 %; Mean Corpuscular Hemoglobin 31.8 pg (28.0-33.3); Mean Corpuscular Volume 99.3 fL (83.0-100.0); Mean Platelet Volume 10.2 fL (9.4-12.4); Monocytes # 0.3 K/mcL (0.0-1.3); Monocytes % 5.4 %; Neutrophils # 4.6 K/mcL (1.6-8.9); Platelet Count 142 K/mcL (140-400); Red Blood Count 2.77 M/mcL (4.19-5.50); Red Cell Distribution Width 16.8 % (11.5-14.5); Segmented Neutrophils % 75.2 %
[2018-01-24 06:12] LABS: Alanine Aminotransferase 5 Units/L (7-52); Albumin 3.1 g/dL (3.5-5.7); Albumin/Globulin Ratio 1.5 (1.1-2.2); Alkaline Phosphatase 122 Units/L (34-104); Aspartate Amino Transferase 11 Units/L (13-39); BUN/Creatinine Ratio 13 (6-26); Bilirubin,Total 0.7 mg/dL (0.3-1.0); Blood Urea Nitrogen 9 mg/dL (8-23); Calcium 8.5 mg/dL (8.6-10.3); Carbon Dioxide 25 mEq/L (23-29); Chloride 112 mEq/L (98-107); Globulin 2.1 g/dL (2.4-3.5); Glucose 115 mg/dL (70-105); Osmolality,Calculated 296 (280-300); Potassium 4.1 mEq/L (3.5-5.1); Sodium 143 mEq/L (136-145); Total Protein 5.2 g/dL (6.4-8.9); eGFR For African Americans > 60 (> 60); eGFR For Non-African Americans > 60 (> 60)
[2018-01-24] MEDS: Gabapentin 400 MG CAPSULE PO SCH ×2 (07:50→15:35)
[2018-01-24] MEDS: tiZANidine 4 MG TABLET PO SCH ×2 (07:50→15:35)
[2018-01-24] MEDS: Baclofen 10 MG TABLET PO SCH ×2 (07:50→15:34)
[2018-01-24] MEDS: Nicotine 21 MG PATCH.TD24 TD SCH (07:50)
[2018-01-24] MEDS: traMADol 50 MG TABLET PO PRN ×2 (08:00→15:37)
--- NOTE | 2018-01-24 08:26 | Urology Progress Note ---
Date of Encounter: 01/24/18 Time of Encounter: 08:23 - Assessment and Plan (1) Gross hematuria Current Visit: Yes Status: Acute Assessment and plan: resolving. no need for surgery. I am stopping CBI today. urine will likely still be transparent pink. ok to discharge from standpoint. keep cath in place at discharge. keep cath in place until urine clear. it can be removed as outpatient. pt can call our office to notify us when clear. STAY OFF ALL ANTICOAGULATION. Progress Note Narrative: hematuria is clearing. Objective Initial Vital Signs Temp Pulse Resp BP Pulse Ox 97.7 F 80 16 97/63 97 01/21/18 14:16 01/21/18 14:16 01/21/18 14:16 01/21/18 14:16 01/21/18 14:16 - General physical appearance Present: no distress - Abdomen Present: soft - Additional Exam able to irrigate some residual clot. urine much clearer today. - Labs 01/24/18 05:39 01/24/18 05:39 Diabetes panel 01/24/18 Range/Units 05:39 Sodium 143 (136-145) mEq/L Potassium 4.1 (3.5-5.1) mEq/L Chloride 112 H (98-107) mEq/L Carbon Dioxide 25 (23-29) mEq/L BUN 9 (8-23) mg/dL Creatinine 0.67 L (0.70-1.30) mg/dL Glucose 115 H (70-105) mg/dL Calcium 8.5 L (8.6-10.3) mg/dL AST 11 L (13-39) Units/L ALT 5 L (7-52) Units/L Alkaline Phosphatase 122 H (34-104) Units/L Albumin 3.1 L (3.5-5.7) g/dL Calcium panel 01/24/18 Range/Units 05:39 Calcium 8.5 L (8.6-10.3) mg/dL Albumin 3.1 L (3.5-5.7) g/dL Pituitary panel 01/24/18 Range/Units 05:39 Sodium 143 (136-145) mEq/L Potassium 4.1 (3.5-5.1) mEq/L Chloride 112 H (98-107) mEq/L Carbon Dioxide 25 (23-29) mEq/L BUN 9 (8-23) mg/dL Creatinine 0.67 L (0.70-1.30) mg/dL Glucose 115 H (70-105) mg/dL Calcium 8.5 L (8.6-10.3) mg/dL Adrenal panel 01/24/18 Range/Units 05:39 Sodium 143 (136-145) mEq/L Potassium 4.1 (3.5-5.1) mEq/L Chloride 112 H (98-107) mEq/L Carbon Dioxide 25 (23-29) mEq/L BUN 9 (8-23) mg/dL Creatinine 0.67 L (0.70-1.30) mg/dL Glucose 115 H (70-105) mg/dL Calcium 8.5 L (8.6-10.3) mg/dL Total Bilirubin 0.7 (0.3-1.0) mg/dL AST 11 L (13-39) Units/L ALT 5 L (7-52) Units/L Alkaline Phosphatase 122 H (34-104) Units/L Albumin 3.1 L (3.5-5.7) g/dL - VTE Documentation of Mechanical Device: Intermittent pneumatic compression device Consult Discharge Plan - Plan Referrals: Estrellita Velez, DION [Primary Care Provider] - 01/28/18 9:30 am
[2018-01-24] MEDS: diazePAM 10 MG TABLET PO PRN (10:41)
[2018-01-24] MEDS: Budesonide/Formoterol 160/4.5 MDI IH SCH ×2 (10:49→19:57)
--- NOTE | 2018-01-24 15:38 | Discharge Summary ---
- NOTES TO OUTPATIENT PROVIDER Notes to Outpatient Provider: Follow with PCP within one week-monitor CBC within 3-5 days or already if any concern. Informed Dr. Mcwilliams office once urine clears. Keep his scheduled appointment with his oncologist and urologist this week. Hold all anticoagulant until cleared by urologist or PCP Orders not resulted at time of discharge: Pending orders 01/25/18 04:00 Complete Blood Count [HEME] AM 0400 Comprehensive Metabolic Panel AM 0400 01/26/18 04:00 Complete Blood Count [HEME] AM 0400 Comprehensive Metabolic Panel AM 0400 Date of Encounter: 01/24/18 Time of Encounter: 15:34 - Discharge Diagnosis (1) Gross hematuria Priority: Primary Status: Acute Assessment and Plan: Clearing of but not still pinkish urine. No clot. CT pelvis was ordered by urologist and he is reviewed. Is patient is improving clinically therefore urologist is stopped CBI to an okay to discharge from standpoint and advised to keep Kohli catheter in place at discharge until urine get clear and informed to Dr. Mcwilliams office when urine clear. Avoid all anticoagulation until cleared by urologist or PCP. At the time of discharge patient is still has transparent pink urine Pt. is DNRCCA DNI. (2) Urothelial cancer Priority: Secondary Status: Chronic Assessment and Plan: Hx of urothelial carcinoma. Hx of cystoscopy by Dr. Mcwilliams and transurethral resection of bladder tumor in past. Patient already has plan for chemotherapy therapy at [facility] and plan for cystectomy at [facility] after getting discharged from the hospital. Keep his scheduled appointment with oncologist and surgeon and urologist this week (3) HTN (hypertension) Priority: Secondary Status: Chronic Assessment and Plan: normal blood pressure at the time of discharge. Initially low blood pressure due to volume loss secondary to active hematuria. Qualifiers: Hypertension type: essential hypertension Qualified Code(s): I10 - Essential (primary) hypertension (4) Severe hypotension Priority: Primary Status: Acute Assessment and Plan: And had 2 unit blood transfusion at [facility] and one unit at [facility]. Blood pressure is normal now. Patient is ambulating without getting dizziness. (5) Atrial flutter Priority: Secondary Status: Chronic Assessment and Plan: Hx of atrial flutter. Pt. on Xarelto for a few years. Anticoagulant on hold for now due to active hematuria. Continue rate control medicine atenolol. Qualifiers: Atrial flutter type: unspecified Qualified Code(s): I48.92 - Unspecified atrial flutter (6) Torticollis Priority: Primary Status: Chronic Assessment and Plan: Chronic is stable. Has been evaluated by neurologist at [facility] course: Mr. Gardner is a 72 year old male aspirin from [facility] with diagnosis of CVA and hypertension secondary to volume loss due to hematuria. Patient got 2 unit blood transfusion at [facility] and one unit at [facility]. Urologist was consulted and is started on continuous bladder irrigation and CT pelvis was done. Eventually patient is started to improve and urologist okay to discharge patient home. At the time of discharge patient is ambulating, tolerating oral diet and not symptomatic. Hemoglobin is stable. Patient is still has pink urine but will send on urine catheter. Please see details in the diagnosis part of the discharge summary Discharge discussed with: patient, family, nurse - Time Spent with Patient Total time spent providing and/or coordinating discharge services: - Discharge Medications Home Medications: Atenolol [Tenormin] 50 mg PO DAILY 09/30/16 [History] Baclofen [Lioresal] 10 mg PO TID 09/30/16 [History] Dantrolene Sodium 50 mg PO TID 09/30/16 [History] Esomeprazole Magnesium [Nexium] 40 mg PO DAILY PRN 09/30/16 [History] Sennosides [Senokot] 8.6 mg PO DAILY PRN 09/30/16 [History] Tizanidine HCl 8 mg PO Q8H 09/30/16 [History] Tramadol HCl [Ultram] 100 mg PO Q8H PRN 09/30/16 [History] diazePAM [Valium] 10 mg PO TID PRN 09/30/16 [History] Atorvastatin Calcium [Lipitor] 20 mg PO HS 09/15/17 [History] Gabapentin [Neurontin] 400 mg PO TID 09/15/17 [History] Terazosin HCl 10 mg PO BID 09/15/17 [History] Albuterol Sulfate [Ventolin Hfa] 2 puff IH Q6H PRN 01/21/18 [History] Budesonide/Formoterol 160/4.5 [Symbicort 160/4.5] 2 puff IH BID 01/21/18 [ History] Allergies/Adverse Reactions: 3 Allergy/AdvReac Type Severity Reaction Status Date / Time morphine AdvReac See Verified 01/21/18 19:50 Comments Oxycodone AdvReac See Verified 01/21/18 19:50 Comments Date of admission: 01/21/18 13:44 Primary care physician: Estrellita Velez CNP Consults: 01/21/18 15:00 Consult to House Steward/Stewardess [CONS] Routine Reason for SW Consult: Please assess patient for possible home needs for post -discharge planning. 01/21/18 15:22 Consult to Urology [CONS] Routine Consulting Provider: Urology Queenie Reason for Consult: Pt. hx of bladder cancer. Patient discussed w/Dr. Mcwilliams during transfer from [place]. Patient arrived to floor w/Kohli in place. Pt. received 2 units PBRCs. SBP in 50s prior to transfer and now in 90s. BPs Q15MIN. Dr. Mcwilliams notified of gross and consolidated shira blood loss through Kohli w/clots and recommended not inserting a 3-way Kohli or CBI. Pt. to be kept hemodynamically stable until Urology sees pt. and we will transfuse as appropriate. H/H Q6HR. Call Completed: Yes 01/21/18 16:32 Consult to Nutrition [CONS] Routine Comment: Consulting Provider: NUTRITION Reason for Dietary Consult: MST Score Consult to House Steward/Stewardess [CONS] Routine Reason for SW Consult: possible needs at discharge - Constitutional Vitals: Temp Pulse Resp BP Pulse Ox 98.2 F 76 18 117/77 96 01/24/18 11:24 01/24/18 11:38 01/24/18 11:24 01/24/18 11:24 01/24/18 11:24 General appearance: Present: cooperative, A&O X 3, pleasant, no acute distress, underweight, answers questions appropriately Exam: General appearance: No acute distress, A&O X 3, family at bedside Head exam: Atraumatic Eye exam: EOMI, PERRLA ENT exam: Moist oral mucosa Neck nontender, supple chronic torticollis Respiratory exam: Clear to auscultation bilaterally Cardiovascular exam: Regular rate and rhythm, no systolic murmur Abdominal exam: Soft, nontender, nondistended, positive bowel sounds Extremities exam: No calf tenderness, no pedal edema Present: Skin-no rash, warm, dry, intact Neurological exam: Alert, awake, oriented 3, CN II-XII intact, no focal deficits. No facial droop. Normal speech. Normal gait. - Patient Status Disposition: Home, Self-Care Condition: Good Functional capacity at discharge: independent ambulation Overall status at discharge: patient is back to baseline - Discharge Instructions Follow Up With: Estrellita Velez CNP [Primary Care Provider] - 01/28/18 9:30 am Additional Instructions: Kohli catheter care. CBC repeat in 3-5 days or earlier as per PCP - Diet and Activity Activity: increase activity as tolerated Diet: advance to your usual diet - VTE Documentation of Mechanical Device: Intermittent pneumatic compression device
[2018-01-24 16:27] VITALS: BP 132/75
== END 2018-01-24 19:15 | disposition home or self-care (01) | DRG 687 ==
LOC: 3ANU 13:44 → 2NNU 15:40
PROVIDERS: ADMIT Hospitalist; ATTEND Hospitalist